=== PATIENT | female | born 1970 | race African-American/Black ===

== ENCOUNTER 2016-07-31 18:05 | Emergency (ER) | payer OTHER ==
[~2016-07-31 18:05] MED LIST: ADVAIR 1001 DISK W/D PO; ALLER-TEC10 MG PO; FERRO-TIME325 MG PO; HYDROCHLOROTHIA25 MG PO; IBUPROFEN PO; IBUPROFEN800 MG PO; KEFLEX PO; LORTAB 5/500 TA1 TA1 PO; NEURONTIN300 MG PO; PROVENTIL17 GM INH; SPECTAZOLE15 GM TP; TYLOX 5/500 CAP1 CAP PO; VOLTAREN50 MG PO; ZESTRIL10 M1 PO; ZESTRIL10 MG PO; ZITHROMAX PO
[2016-07-31 19:19] LABS: INFLUENZA A NEG (NEG); INFLUENZA B NEG (NEG)
== END 2016-07-31 19:30 | disposition home or self-care (01) ==
LOC: CFTX 18:05
PROVIDERS: Physician Assistant Medical
DX: J06.9 Acute upper respiratory infection, unspecified (principal); I10 Essential (primary) hypertension; J45.909 Unspecified asthma, uncomplicated
CPT/HCPCS: 87651; 87804; 99283